=== PATIENT | female | born 1960 ===

== ENCOUNTER → 2017-07-23 | Day surgery (SDC) | payer BC ==
[2017-07-23 10:53] VITALS: BMI 32.3
[2017-07-23 11:45] LABS: HCG,QUALITATIVE URINE NEGATIVE (NEGATIVE)
[2017-07-23 11:46] LABS: SQUAMOUS EPITHIAL 2 /hpf (0-5); URINE BILIRUBIN NEGATIVE (NEGATIVE); URINE BLOOD NEGATIVE (NEGATIVE); URINE CLARITY CLEAR (Clear); URINE COLOR YELLOW (YELLOW); URINE GLUCOSE (UA) NEG (Normal); URINE LEUKOCYTE ESTERASE NEG Leu/uL (Negative); URINE PROTEIN NEGATIVE (NEGATIVE); URINE UROBILINOGEN 0.2-1.0 mg/dL (0.2-1.0)
[2017-07-23 11:47] LABS: HEMOGLOBIN 13.5 g/dL (12.0-16.0); MEAN CELL VOLUME 85.4 fl (81.0-99.0); MEAN CORPUSCULAR HEMOGLOBIN 28.5 pg (27.0-31.0); MEAN CORPUSCULAR HGB CONC 33.3 g/dL (33.0-37.0); RBC 4.74 Mil/uL (3.80-5.20); RED CELL DISTRIBUTION WIDTH 14.6 % (11.5-14.5); WHITE BLOOD COUNT 11.9 K/uL (4.8-10.8)
[2017-07-23 12:00] LABS: BLOOD UREA NITROGEN 11 mg/dl (7-17); CALCIUM 9.3 mg/dL (8.4-10.2); GFR AFRICAN-AMERICAN > 60; GFR NON-AFRICAN AMERICAN > 60
--- NOTE | 2017-07-23 14:48 | CARD ---
APPROVED REPORT EKG Measurement Heart [id number] <Conclusion> Normal sinus rhythm Normal ECG
--- NOTE | 2017-07-23 14:52 | RAD ---
HISTORY: pre-op COMPARISON: 04/09/2011 TECHNIQUE: Chest PA and lateral FINDINGS: LUNGS: No active pulmonary disease. PLEURA: No significant pleural effusion identified. No pneumothorax apparent. CARDIOVASCULAR: No radiographic findings to suggest acute or significant cardiovascular disease. OSSEOUS STRUCTURES: No significant abnormalities. VISUALIZED UPPER ABDOMEN: Normal. OTHER FINDINGS: None. IMPRESSION: No active disease. No significant interval change compared to the prior examination(s).
== END | disposition home or self-care (01) ==
LOC: H.PAT 10:17
PROVIDERS: ATTEND Specialist
DX: Z01.818 Encounter for other preprocedural examination (principal); N92.6 Irregular menstruation, unspecified; D25.9 Leiomyoma of uterus, unspecified; R93.8 Abnormal findings on diagnostic imaging of other specified body structures

== ENCOUNTER 2017-07-24 06:32 | Day surgery (SDC) | payer BC ==
[2017-07-23 11:39] VITALS: BMI 32.3
--- NOTE | 2017-07-24 07:39 | CP.SDSHP ---
Same Day Surgery H & P - History Proposed Procedure: hysteroscopy/myosure/D/C Pre-Op Diagnosis: irregular bleeding/thickened endometrium/fibroids - Previous Medical/Surgical History Cardiac: Hypertension Endocrine/Metabolic: Diabetes Previous Surgical History: appendectomy/BTL/d/cx2 - Allergies Allergies: Allergies iodine Allergy (Verified 07/23/17 11:35) RASH - Physical Exam Vital Signs: Vital Signs 07/24/17 07/24/17 07:17 07:20 Temperature 97.5 F L Pulse Rate 63 63 Respiratory 20 Rate Blood Pressure 140/63 O2 Sat by Pulse 99 Oximetry Mental Status: Alert & Oriented x3 Neuro: WNL Heart: WNL Lungs: WNL GI: WNL - {Optional Preform as Required} Breast: WNL Abdomen: WNL FAST FOOD ATTENDANT: Other Other Pertinent Findings: uterus upper limit size, irregular contour - Impression Impression: irregular bleeding, fibroid uterus and thickened endometrium - Date & Time Date: 07/24/17 Time: 07:41 Short Stay Discharge - Short Stay Discharge Admitting Diagnosis/Reason for Visit: N92.6/D25.9/R93.8 Disposition: HOME/ ROUTINE Referrals: Aaron Hope MD [Primary Care Provider] -
[2017-07-24] MEDS ORDERED: Midazolam 2 MG/2 ML VIAL ONE (07:50)
[2017-07-24] MEDS ORDERED: Propofol 10 mg/ml Inj (20 ML) ONE (07:50)
[2017-07-24] MEDS ORDERED: Lactated Ringer's 500 ML IV ONE ×2 (07:55→08:25)
[2017-07-24] MEDS ORDERED: HYDROmorphone 0.5 mg/0.5 ml ISec IVP PRN (08:47)
[2017-07-24] MEDS ORDERED: DiphenhydrAMINE 50 mg/ml Inj IVP PRN (08:47)
[2017-07-24] MEDS ORDERED: Oxycodone/Acetaminophen 5/325 mg Tab PO PRN (08:54)
[2017-07-24] MEDS ORDERED: Lactated Ringer's 1,000 ML IV SCH (09:00)
[2017-07-24 10:36] VITALS: RESP 18
[2017-07-24 11:24] VITALS: BP 119/64; PULSE 63; TEMP 97.8; O2SAT 95
--- NOTE | 2017-07-24 21:05 | OP ---
PROCEDURE DATE: 07/24/2017 PREOPERATIVE DIAGNOSES: 1. Abnormal uterine bleeding. 2. Thickened endometrium by ultrasound. 3. Fibroid uterus. POSTOPERATIVE DIAGNOSES: 1. Abnormal uterine bleeding, pending pathology report. 2. Thickened endometrium by ultrasound, endometrial polyps. 3. Fibroid uterus. PROCEDURE PERFORMED: 1. Hysteroscopy with MyoSure polypectomy. 2. Suction dilatation and curettage. SURGEON: Faheem Trujillo MD TYPE OF ANESTHESIA: General. ANESTHESIA ADMINISTERED BY: Alfonso Cardona MD ESTIMATED BLOOD LOSS: 350 mL. DRAINS USED: None. REPLACEMENT USED: None. FINDINGS: 1. Cervix appears thick, soft, no gross lesion to visualization. 2. Uterus appears enlarged, globulus about 8 weeks' size. 3. No adnexal mass to palpation bilaterally. 4. Hysteroscopy performed showing some endometrial sloughing and a small endometrial polyps, MyoSure polypectomy done under direct visualization. 5. Dilatation and curettage have been done without any complications. DESCRIPTION OF PROCEDURE: The patient was taken to the operating room and placed on the operating room table in a supine position. Following induction of general anesthesia, the patient was then placed in a dorsal lithotomy position. Perineal and genital areas were draped and prepped in usual sterile manner. Sterile catheter was then placed into the bladder and the bladder was evacuated from clear fluid. At this time, the patient was then examined under anesthesia with some of the above findings. Heavy weighted speculum was then placed in the posterior wall of the vagina exposing the cervix. The anterior lip of the cervix was then grasped, the anterior lip using the single tooth tenaculum and retracted superiorly. At this time, using the Joanne curette, endocervical curettage was then performed. Specimen minimal was obtained and sent to pathology for appropriate pathological evaluation. Following this, the endocervical canal was then dilated using Inderjit dilators in an increasing size manner. Following this, a hysteroscope was then placed at the cervix and advanced under direct visualization into the endometrial cavity. The endometrial cavity appears with some sloughing endometrium and some small polyps. Using MyoSure technique, polypectomy was then performed under direct visualization. Following removal of 3 small polyps, the hysteroscope was then removed under direct visualization. No other abnormalities noted and at this time, the uterine cavity was then curette using sharp curettage, minimal amount tissue obtained, and sent to pathology. At this time, the uterus was massaged, contracted well, and the single tooth tenaculum removed. No bleeding noted. The patient tolerated the procedure well. There were no complications. She was transferred to the recovery room in satisfactory condition. Faheem Trujillo MD
== END 2017-07-24 11:28 | disposition home or self-care (01) ==
LOC: H.OPSURG 06:32
PROVIDERS: ATTEND Specialist
DX: N92.6 Irregular menstruation, unspecified (principal); D25.9 Leiomyoma of uterus, unspecified; R93.8 Abnormal findings on diagnostic imaging of other specified body structures; E11.9 Type 2 diabetes mellitus without complications; I10 Essential (primary) hypertension; N84.1 Polyp of cervix uteri; N84.0 Polyp of corpus uteri; Z01.818 Encounter for other preprocedural examination
CPT/HCPCS: 36415; 58558; 71046; 80048; 81003; 82948; 84703; 85027; 85610; 85730; 88305; 93005; J0690; J2001; J2250; J2704; J3010; J7030; J7120

== ENCOUNTER 2017-08-01 04:51 | Emergency (ER) | payer BC ==
[2017-08-01 04:51] VITALS: BMI 32.3
[2017-08-01 05:16] VITALS: BP 148/83; PULSE 98; RESP 17; TEMP 99.4; O2SAT 97
[2017-08-01] MEDS ORDERED: Sodium Chloride 0.9% 1,000 ML IV STA (05:22)
--- NOTE | 2017-08-01 05:31 | ED PDOC ---
History of Present Illness History of Present Illness: 56 y/o female with past medical history of diabetes and hypertension presents to the ED with flu like symptoms. Patient complains of fever, chills, body aches, and headache since yesterday. States that she hasnt taken flu shot this year. Also reports loss of appetite but denies nausea and vomiting. Patient took Tylenol with mild relief. Denies any further medical complaints. PMD: Aaron Hope MD HPI: Influenza Time Seen by Provider: 08/01/17 05:17 Chief Complaint: Flu-like Symptoms Chief Complaint (Provider): Flu-like Symptoms History Per: Patient Exam Limitations: no limitations Symptoms include: fever, headache, bodyaches Past Medical History Reviewed: Historical Data, Nursing Documentation, Vital Signs Vital Signs: Last Vital Signs Temp 99.4 F 08/01/17 05:01 Pulse 98 H 08/01/17 05:01 Resp 17 08/01/17 05:01 BP 148/83 08/01/17 05:01 Pulse Ox 97 08/01/17 05:01 - Medical History PMH: Diabetes, HTN Denies: Chronic Kidney Disease - Surgical History Surgical History: Appendectomy - Family History Family History: States: Unknown Family Hx - Social History Current smoker - smoking cessation education provided: No Alcohol: None Drugs: Denies - Home Medications Home Medications: Ambulatory Orders Medication Instructions Recorded Lisinopril [Zestril] 10 mg PO DAILY 07/23/17 Metformin ER [Glucophage XR] 500 mg PO DAILY 07/23/17 amLODIPine [Norvasc] 10 mg PO DAILY 07/24/17 oxyCODONE/Acetaminophen [Percocet 1 tab PO Q4 PRN 07/24/17 5/325 mg Tab] Oseltamivir [Tamiflu] 75 mg PO BID #10 cap 08/01/17 - Allergies Allergies/Adverse Reactions: Allergies Allergy/AdvReac Type Severity Reaction Status Date / Time iodine Allergy RASH Verified 07/23/17 11:35 Review of Systems ROS Statement: Except As Marked, All Systems Reviewed And Found Negative (As per HPI, otherwise negative) Constitutional: Positive for: Fever, Other (Body ache) Gastrointestinal: Negative for: Nausea, Vomiting Neurological: Positive for: Headache Physical Exam - Reviewed Nursing Documentation Reviewed: Yes Vital Signs Reviewed: Yes - Physical Exam Appears: Positive for: Non-toxic, No Acute Distress Head Exam: Positive for: ATRAUMATIC, NORMAL INSPECTION, NORMOCEPHALIC Skin: Positive for: Normal Color, Warm, Dry Eye Exam: Positive for: EOMI, Normal appearance, PERRL ENT: Positive for: Normal ENT Inspection Neck: Positive for: Normal, Painless ROM, Supple Cardiovascular/Chest: Positive for: Regular Rate, Rhythm. Negative for: Murmur Respiratory: Positive for: Normal Breath Sounds. Negative for: Accessory Muscle Use, Respiratory Distress Gastrointestinal/Abdominal: Positive for: Normal Exam, Bowel Sounds, Soft. Negative for: Tenderness Back: Positive for: Normal Inspection Extremity: Positive for: Normal ROM. Negative for: Deformity Neurologic/Psych: Positive for: Alert, Oriented (x3) Medical Decision Making Medical Decision Making: Time: 05:22 Initial Impression: 56 y/o female with clinical influenza Plan: BMP Urine dipstick CBC w/ differential Acetaminophen 975mg PO Toradol 15mg IV Sodium chloride 1L IV Tamiflu cap 75mg PO Blood culture Heplock insertion Accucheck Reevaluation Labs reviewed show no clinically sig abnormalities Patient reports improvement in symptoms and is stable for discharge DX Influenza Scribe Attestation: Documented by Juanito Zapata acting as a scribe for Jarrod Felder MD. Scribe Attestation: All medical record entries made by the Scribe were at my direction and personally dictated by me. I have reviewed the chart and agree that the record accurately reflects my personal performance of the history, physical exam, medical decision making, and the department course for this patient. I have also personally directed, reviewed, and agree with the discharge instructions and disposition. - Laboratory Results Result Diagrams: 08/01/17 06:05 08/01/17 06:05 - ECG O2 Sat by Pulse Oximetry: 97 (RA) Pulse Ox Interpretation: Normal Disposition - Clinical Impression Clinical Impression: Influenza - Disposition Disposition: Routine/Home Disposition Time: 07:00 Condition: STABLE Prescriptions: Oseltamivir [Tamiflu] 75 mg PO BID #10 cap Instructions: Flu Forms: [facility] (Wolof) Print Language: GEORGIAN
[2017-08-01 06:08] LABS: BASO # 0.1 K/uL (0.0-0.2); BASO % 0.6 % (0.0-2.0); EOS # 0.1 K/uL (0.0-0.7); EOS % 0.5 % (0.0-4.0); HEMOGLOBIN 13.9 g/dL (12.0-16.0); LYMPH # 1.1 K/uL (1.0-4.3); LYMPH % 8.9 % (20.0-40.0); MEAN CORPUSCULAR HEMOGLOBIN 28.4 pg (27.0-31.0); MEAN CORPUSCULAR HGB CONC 33.5 g/dL (33.0-37.0); MEAN PLATELET VOLUME 9.8 fl (7.2-11.7); MONO # 1.3 K/uL (0.0-0.8); MONO % 10.5 % (0.0-10.0); NEUT # 9.8 K/uL (1.8-7.0); NEUT % 79.5 % (50.0-75.0); PLATELET COUNT 271 K/uL (130-400); RED CELL DISTRIBUTION WIDTH 14.5 % (11.5-14.5); WHITE BLOOD COUNT 12.3 K/uL (4.8-10.8)
[2017-08-01 06:39] LABS: BLOOD UREA NITROGEN 8 mg/dl (7-17); GFR AFRICAN-AMERICAN > 60; GFR NON-AFRICAN AMERICAN > 60
[2017-08-01 08:59] LABS: ANISOCYTOSIS SLIGHT; BANDS 1 % (0-2); EOSINOPHIL 1 % (0-7); LARGE PLATELETS PRESENT; LYMPHOCYTE 9 % (20-50); MONOCYTE 9 % (0-10); NEUTROPHIL 80 % (42-75); PLATELET ESTIMATE NORMAL (NORMAL); TOTAL CELLS COUNTED 100
== END 2017-08-01 07:04 | disposition home or self-care (01) ==
LOC: H.ER 04:51
DX: J11.1 Influenza due to unidentified influenza virus with other respiratory manifestations (principal); E11.9 Type 2 diabetes mellitus without complications; Z79.84 Long term (current) use of oral hypoglycemic drugs; I10 Essential (primary) hypertension
CPT/HCPCS: 80048; 82948; 85025; 87040; 96360; 99283; J1885; J7040